=== PATIENT | female | born 1935 | race Caucasian/White ===

== ENCOUNTER 2016-07-17 12:21 | Emergency (ER) | payer MEDICARE, MEDICAID ==
[2016-07-17] MEDS ORDERED: Tetan/Diph/Pertus SYR(Tdap)* 0.5 ML SYR(BOOSTRIX) use SYR IM ONE (13:15)
[2016-07-17 14:28] VITALS: BP 100/68
--- NOTE | 2016-07-17 21:05 | ED ---
Zahraa Ledbetter Erika, scribed for Filiberto North MD on 07/17/16 at 1242 . Laceration/Wound HPI - HPI Summary HPI Summary: Patient is an 81-year-old female presenting to the ED with a CC of a laceration to the left lower leg. Per EMS, patient caught her leg in her wheelchair. Patient does not speak or answer any questions in the ED. LEVEL 5 CAVEAT - DEMENTIA. - History of Current Complaint Stated Complaint: LEG LAC Hx Obtained From: EMS Hx From Patient Unobtainable Due To: Dementia Mechanism of Injury: Sharp/Blunt Trauma Onset/Duration: Sudden Onset Timing: Constant - Allergy/Home Medications Allergies/Adverse Reactions: Allergies Allergy/AdvReac Type Severity Reaction Status Date / Time Penicillins Allergy Rash Verified 07/04/13 20:12 PMH/Surg Hx/FS Hx/Imm Hx Neurological History: Reports: Hx Dementia - Cancer History Hx Chemotherapy: No Hx Radiation Therapy: No - Family History Known Family History: Positive: Cardiac Disease - Social History Alcohol Use: None Hx Substance Use: No Substance Use Type: Reports: None Hx Tobacco Use: No Smoking Status (MU): Never Smoked Tobacco Review of Systems - ROS Summary Review of Systems Summary: LEVEL 5 CAVEAT - DEMENTIA Skin: Other - laceration left leg All Other Systems Reviewed And Are Negative: No Physical Exam Triage Information Reviewed: Yes Vital Signs On Initial Exam: Initial Vital Signs Temp 97.6 F 07/17/16 12:43 Pulse 65 07/17/16 12:43 Resp 18 07/17/16 12:43 BP 119/59 07/17/16 12:43 Pulse Ox 97 07/17/16 12:43 Vital Signs Reviewed: Yes Appearance: Positive: Well-Appearing, No Pain Distress, Well-Nourished Skin: Positive: Warm, Skin Color Reflects Adequate Perfusion, Dry, Other - Left lower extremity - lateral at the lower leg - 12 cm laceration and skin tear, mostly a skin tear at the proximal half and subcutaneous at the distal half Head/Face: Positive: Normal Head/Face Inspection Eyes: Positive: Normal ENT: Positive: Normal ENT inspection Neck: Positive: Supple, Nontender Respiratory/Lung Sounds: Positive: Clear to Auscultation, Breath Sounds Present Cardiovascular: Positive: RRR Abdomen Description: Positive: Nontender, Soft Bowel Sounds: Positive: Present Musculoskeletal: Positive: Normal Procedures - Laceration/Wound Repair 1 Location: lower extremity - left Anesthesia: Local, 2.0%, Lido Length, Depth and Shape: 12 cm. Proximal half is mostly skin tear, distal half is subcutaneous Irrigated w/ Saline (ccs): 500 - Irrigated copiously Suture Type: Nylon - 5.0 Number of Sutures: 6 - 3 simple interrupted, 3 vertical mattress Diagnostics - Vital Signs Vital Signs Temp Pulse Resp BP Pulse Ox 07/17/16 14:00 52 100/68 96 07/17/16 13:34 56 18 115/53 07/17/16 13:30 56 115/53 97 07/17/16 13:00 56 104/53 95 07/17/16 12:43 97.6 F 65 18 119/59 97 07/17/16 12:36 57 95 07/17/16 12:35 116/53 - Laboratory Lab Statement: Any lab studies that have been ordered have been reviewed, and results considered in the medical decision making process. Laceration Repair Course/Dx - Clinical Impression Provider Diagnoses: LEG LACERATION Discharge - Discharge Plan Condition: Stable Disposition: HOME Patient Education Materials: Laceration (ED) Referrals: Marlon Jaimes MD [Primary Care Provider] - Additional Instructions: Please have sutures removed in 10 days. You were given a Tdap today. The documentation as recorded by the Zahraa oliver Erika accurately reflects the service I personally performed and the decisions made by , Filiberto North MD.
== END 2016-07-17 13:34 | disposition home or self-care (01) ==
LOC: ED 12:21
DX: F03.90 Unspecified dementia, unspecified severity, without behavioral disturbance, psychotic disturbance, mood disturbance, and anxiety (principal); S81.812A Laceration without foreign body, left lower leg, initial encounter; W22.8XXA Striking against or struck by other objects, initial encounter; Y93.9 Activity, unspecified; Y92.9 Unspecified place or not applicable; Y99.9 Unspecified external cause status
CPT/HCPCS: 12004; 90471; 90715; 99281